=== PATIENT | female | born 1955 | race Two or more races ===

== ENCOUNTER 2017-09-13 11:03 | Outpatient (CLI) | payer OTHER ==
[~2017-09-13 11:03] MED LIST: LIPITOR40 MG; LISINOPRIL10 MG; SYNTHROID112 MCG
== END 2017-09-13 14:30 | disposition home or self-care (01) ==
LOC: MAMO-SONO 11:03
DX: D05.12 Intraductal carcinoma in situ of left breast (principal)

== ENCOUNTER → 2018-10-16 | Outpatient (CLI) | payer OTHER | END | disposition home or self-care (01) | LOC: MAMO-SONO 09:25 | DX: Z85.3 Personal history of malignant neoplasm of breast (principal) ==

== ENCOUNTER 2019-03-24 12:31 | Emergency (ER) | payer OTHER ==
[~2019-03-24] VITALS: Ht 154.9 cm; Wt 54.9 kg
[2019-03-24] MEDS ORDERED: METFORMIN HCL500 M3 PO (13:21)
[2019-03-24] MEDS ORDERED: DRAMAMINE LESS25 MG PO (16:14)
== END 2019-03-24 16:23 | disposition home or self-care (01) ==
LOC: ER 12:31
DX: R42 Dizziness and giddiness (principal)

== ENCOUNTER 2019-11-19 14:35 | Outpatient (CLI) | payer OTHER ==
[~2019-11-19 14:35] MED LIST changes: +DRAMAMINE LESS25 MG PO; +METFORMIN HCL500 M3 PO
== END 2019-11-19 14:39 | disposition home or self-care (01) ==
LOC: MAMO-SONO 14:35
PROVIDERS: ATTEND Specialist
DX: D05.12 Intraductal carcinoma in situ of left breast (principal)

== ENCOUNTER 2020-11-26 13:37 | Outpatient (CLI) | payer OTHER | END 2020-11-26 13:42 | disposition home or self-care (01) | LOC: NUCLEAR 13:37 | PROVIDERS: ATTEND Family Medicine | DX: M81.0 Age-related osteoporosis without current pathological fracture (principal) ==

== ENCOUNTER 2020-12-08 10:17 | Outpatient (CLI) | payer OTHER | END 2020-12-08 10:31 | disposition home or self-care (01) | LOC: MAMO-SONO 10:17 | PROVIDERS: ATTEND Specialist | DX: D05.12 Intraductal carcinoma in situ of left breast (principal); N64.59 Other signs and symptoms in breast ==

== ENCOUNTER 2021-10-04 10:06 | Outpatient (CLI) | payer OTHER | END 2021-10-04 10:09 | disposition home or self-care (01) | LOC: MAMO-SONO 10:06 | PROVIDERS: ATTEND Specialist | DX: D05.12 Intraductal carcinoma in situ of left breast (principal); N64.4 Mastodynia ==

== ENCOUNTER 2022-07-04 11:51 | Outpatient (CLI) | payer OTHER | END 2022-07-04 11:55 | disposition home or self-care (01) | LOC: RAD 11:51 | PROVIDERS: ATTEND Internal Medicine Hematology & Oncology | DX: M47.22 Other spondylosis with radiculopathy, cervical region (principal); M25.511 Pain in right shoulder; M54.2 Cervicalgia ==

== ENCOUNTER → 2022-08-23 | Outpatient (CLI) | payer OTHER | END | disposition home or self-care (01) | LOC: SONOGRAMA 10:34 | PROVIDERS: ATTEND Internal Medicine Hematology & Oncology | DX: M75.101 Unspecified rotator cuff tear or rupture of right shoulder, not specified as traumatic (principal) ==

== ENCOUNTER 2022-10-17 12:54 | Outpatient (CLI) | payer OTHER | END 2022-10-17 13:06 | disposition home or self-care (01) | LOC: MAMO-SONO 12:54 | PROVIDERS: ATTEND Specialist | DX: D05.12 Intraductal carcinoma in situ of left breast (principal) ==

== ENCOUNTER 2023-10-30 08:35 | Outpatient (CLI) | payer OTHER | END 2023-10-30 08:50 | disposition home or self-care (01) | LOC: MAMO-SONO 08:35 | PROVIDERS: ATTEND Specialist | DX: D05.12 Intraductal carcinoma in situ of left breast (principal); Z12.31 Encounter for screening mammogram for malignant neoplasm of breast ==

== ENCOUNTER 2023-11-05 08:42 | Outpatient (CLI) | payer OTHER | END 2023-11-05 08:57 | disposition home or self-care (01) | LOC: SONOGRAMA 08:42 | PROVIDERS: ATTEND Obstetrics & Gynecology | DX: J30.1 Allergic rhinitis due to pollen (principal); J45.51 Severe persistent asthma with (acute) exacerbation; R10.2 Pelvic and perineal pain ==

== ENCOUNTER 2024-11-06 09:15 | Outpatient (CLI) | payer OTHER | END 2024-11-06 09:22 | disposition home or self-care (01) | LOC: MAMO-SONO 09:15 | PROVIDERS: ATTEND Specialist | DX: D05.12 Intraductal carcinoma in situ of left breast (principal) ==

== ENCOUNTER 2024-11-06 10:26 | Outpatient (CLI) | payer OTHER | END 2024-11-06 10:34 | disposition home or self-care (01) | LOC: RAD 10:26 | DX: M79.642 Pain in left hand (principal) ==

== ENCOUNTER 2024-12-25 10:36 | Outpatient (CLI) | payer OTHER | END 2024-12-25 10:37 | disposition home or self-care (01) | LOC: NUCLEAR 10:36 | DX: M81.0 Age-related osteoporosis without current pathological fracture (principal) ==

== ENCOUNTER 2025-02-03 09:30 | Outpatient (CLI) | payer OTHER ==
[~2025-02-03 09:30] MED LIST changes: +ECOTRIN81 MG PO; +PREVACID30 MG PO
== END 2025-02-03 09:34 | disposition home or self-care (01) ==
LOC: RAD 09:30
PROVIDERS: ATTEND Orthopaedic Surgery Hand Surgery
DX: M19.142 Post-traumatic osteoarthritis, left hand (principal)